=== PATIENT | male | born 1960 | race Caucasian/White ===

== ENCOUNTER 2019-04-05 22:32 | Emergency (ER) | payer OTHER ==
[~2019-04-05] VITALS: Ht 180.3 cm; Wt 83.9 kg
--- NOTE | ~2019-04-05 | EKG ---
[place] [address] ELECTROCARDIOGRAM REPORT Name: LEOLA SPIVEY Room: [facility]#: [id number] Admission: 04/05/19 Attend Phys: Discharge: 04/06/19 Date of : 64 Date of Service: 04/05/192234 Report #: [id number] THIS REPORT FOR: cc: Di Mckeon MD, Sharon D. MD Epiphany, Epiphany MD ~ THIS REPORT FOR: //name// [facility] ED Test Date: 2019-04-05 Test Time: 22:35:04 Pat Name: LEOLA SPIVEY Department: Room: Gender: M Senior Advisor: ELOINA : 1960 Requested By: Jeff White Order Number: [id number] MD: Measurements Intervals [place] Rate: 95 P: 40 NM: 177 QRS: 47 QRSD: 99 T: 53 QT: 348 QTc: 438 Interpretive Statements Sinus rhythm No previous ECG available for comparison [email or web address] By: 34 [id number] Epiphany Epiphany, /EPI
[2019-04-05] MEDS ORDERED: ZESTRIL40 MG PO (22:41)
[2019-04-05 23:19] LABS: AMP/METHAMP POSITIVE (Negative); BARBITURATES Negative (Negative); BENZODIAZEPINES Negative (Negative); COCAINE Negative (Negative); METHADONE Negative (Negative); OPIATES POSITIVE (Negative); PCP Negative (Negative); THC Negative (Negative)
[2019-04-05 23:27] LABS: ABSOLUTE EOSINOPHILS 0.3 thou/uL (0.0-0.7); ABSOLUTE LYMPHOCYTES 1.3 thou/uL (0.8-5.3); ABSOLUTE MONOCYTES 0.3 thou/uL (0.0-1.2); ABSOLUTE NEUTROPHILS 3.1 thou/uL (1.6-8.1); BASOPHILS 0.8 %; EOSINOPHILS 6.2 %; HEMATOCRIT 39.2 % (42.0-52.0); HEMOGLOBIN 13.9 gm/dL (14.0-18.0); LYMPHOCYTES 25.2 %; MCH 30.6 pg (26.0-34.0); MCHC 35.4 g/dL (28.0-37.0); MCV 86.4 fL (80.0-100.0); MPV 6.3 fl. (7.2-11.1); NUCLEATED RBCS 0 /100WBC; PLATELET COUNT* 301 thou/uL (150-400); POLYS 61.8 %; RBC 4.54 mil/uL (4.50-6.00)
[2019-04-05 23:38] LABS: PROTIME 10.7 Seconds (9.20-11.50)
[2019-04-05 23:41] LABS: CALCIUM 8.5 mg/dL (8.5-10.1); CREATININE 0.9 mg/dL (0.6-1.3); POTASSIUM 3.6 mmol/L (3.5-5.1)
[2019-04-05 23:46] LABS: ALBUMIN 3.6 g/dL (3.4-5.0); TOTAL BILIRUBIN 0.3 mg/dL (<0.1-1.0); TOTAL PROTEIN 7.2 g/dL (6.4-8.2)
[2019-04-06 02:00] VITALS: BP 157/60
== END 2019-04-06 02:00 ==
LOC: M.ERS 22:32
PROVIDERS: Emergency Medicine
DX: F41.9 Anxiety disorder, unspecified (principal); I10 Essential (primary) hypertension